=== PATIENT | female | born 2000 | race Caucasian/White ===

== ENCOUNTER 2025-01-16 15:16 | Inpatient (IN) | payer OTHER ==
[2025-01-16 16:48] VITALS: BMI 32.4
[2025-01-16] MEDS ORDERED: Diphenoxylate HCl/Atropine Tablet PO PRN ×2 (18:44)
[2025-01-16] MEDS ORDERED: Ondansetron PF 4 MG/2 ML Vial IVP PRN ×2 (18:44→23:55)
[2025-01-16] MEDS ORDERED: Acetaminophen 500 MG TAB PO PRN (18:44)
[2025-01-16] MEDS ORDERED: Carboprost 250 MCG/ML AMP IM PRN (18:44)
[2025-01-16] MEDS ORDERED: hydrALAZINE 20 MG/ML VIAL SLOW IVP PRN (18:44)
[2025-01-16] MEDS ORDERED: Ibuprofen 800 MG TAB PO PRN (18:44)
[2025-01-16] MEDS ORDERED: HYDROcodone/Acetaminophen 5/325 mg Tablet PO PRN ×2 (18:44)
[2025-01-16] MEDS ORDERED: Lidocaine 1% (PF) 30 ML VIAL SC PRN (18:44)
[2025-01-16] MEDS ORDERED: Tranexamic Acid 1,000 MG/10 ML VIAL IVP PRN (18:44)
[2025-01-16] MEDS ORDERED: Methylergonovine 0.2 MG/ML VIAL IM PRN (18:44)
[2025-01-16] MEDS ORDERED: Oxytocin 30 units/NS 500 ML 500 ML IV SCH ×2 (18:45)
[2025-01-16 19:05] LABS: Hematocrit 39.0 % (34.9-44.5); Hemoglobin 13.5 g/dL (12.0-15.5); Mean Corpuscular Hemoglobin 30.8 pg (27.0-33.0); Mean Corpuscular Volume 88.8 fL (81.6-98.3); Platelet Count 213 10x3/uL (150-450); Red Blood Cell (RBC) Count 4.39 10x6/uL (3.90-5.03); White Blood Cell (WBC) Count 14.63 10x3/uL (3.5-10.5)
[2025-01-16 20:03] LABS: Hep B Surf Ag - L&D Non-Reactive S/CO (NonReactive)
[2025-01-16 20:05] LABS: Syphilis Antibody Index 0.11 S/CO (<1.00 Non-Reactive)
[2025-01-16] MEDS ORDERED: Communication Order-Pharmacy FS SCH (23:45)
[2025-01-16] MEDS ORDERED: fentaNYL 2 mcg/Ropivacaine 0.2% Epidural 100 ML CADD EPIDURAL SCH (23:45)
[2025-01-16] MEDS: fentaNYL/Ropivacaine Epidural 100 ML ONE (23:48)
[2025-01-16] MEDS ORDERED: Acetaminophen 325 MG TAB PO PRN (23:55)
[2025-01-16] MEDS ORDERED: diphenhydrAMINE 50 MG/ML VIAL IVP PRN (23:55)
[2025-01-17] MEDS ORDERED: Bupivacaine 0.25% HCL 30 ML VIAL ONE (09:00)
[2025-01-17] MEDS ORDERED: Boostrix 0.5 ML (Tdap) VIAL (>/=7 yrs of age) IM ONE (11:59)
[2025-01-17] MEDS ORDERED: Milk Of Magnesia 30 ML UDCUP PO PRN (11:59)
[2025-01-17] MEDS ORDERED: diphenhydrAMINE 25 MG CAP PO PRN (11:59)
[2025-01-17] MEDS ORDERED: Acetaminophen/Codeine 30-300mg Tablet PO PRN (11:59)
[2025-01-17] MEDS ORDERED: Preparation H Ointment 28 GM TUBE PR PRN (11:59)
[2025-01-17] MEDS ORDERED: Bisacodyl 10 MG SUPP PR PRN (11:59)
[2025-01-17] MEDS ORDERED: Lanolin Ointment 7 GM TUBE TOP PRN (11:59)
[2025-01-17] MEDS ORDERED: hydrALAZINE 20 MG/ML VIAL SLOW IVP PRN (11:59)
[2025-01-17] MEDS: Ibuprofen 800 MG TAB PO SCH (12:32)
[2025-01-17] MEDS: Ferrous Sulfate 325 MG TAB PO SCH (18:10)
[2025-01-17] MEDS: Benzocaine-Menthol 82.5 ML CAN TOP PRN (21:26)
[2025-01-18 07:49] VITALS: BP 108/65; TEMP 97.9
== END 2025-01-18 15:50 | disposition home or self-care (01) | DRG 807 ==
LOC: CSHLD/OP 15:16 → CSHLD 18:46 → CSHPED 01-17 12:45
PROVIDERS: ADMIT Obstetrics & Gynecology; ATTEND Obstetrics & Gynecology
PROC: 10E0XZZ Delivery of Products of Conception, External Approach (ICD-10-PCS; principal; 2025-01-17)
PROC: 0KQM0ZZ Repair Perineum Muscle, Open Approach (ICD-10-PCS; 2025-01-17)
DX: O48.0 Post-term pregnancy (principal); Z37.0 Single live birth; Z3A.40 40 weeks gestation of pregnancy; O70.1 Second degree perineal laceration during delivery
CPT/HCPCS: 36415; 51702; 85027; 86780; 86850; 86900; 86901; 87340; 99285; J0665